=== PATIENT | female | born 1945 | race Caucasian/White ===

== ENCOUNTER 2022-03-17 01:45 | Day surgery (SDC) | payer MEDICARE, OTHER, SELFPAY ==
--- NOTE | 2022-03-09 11:07 | PC.NURSE ---
Report to the Outpatient Waiting Room, entrance under the green pavilion located off [facility], at time _0800 on date __03/17/22 . Planned Procedure Time: ___1000 . Time changes happen often and if your time is changed the preop area will call you the afternoon before. - You and your visitor will be asked to self-screen and do not enter if you have any COVID symptoms. - Only one visitor is requested with a max of two and NO children visitors are allowed at this time. - The patient visitor may be requested to leave or wait in car when not with patient due to distancing restrictions. - A mask is optional within the hospital. Patients may have clear liquids (water, carbonated beverages, clear teas, apple juice) until 3 hours prior to surgery with a maximum of 20 ounces. - No food from midnight until time of surgery - Infants may have breast milk until 4 hours before surgery, formula 6 hours prior to surgery. - Children will be allowed to drink immediately following surgery. If applicable, please bring a bottle or sippy cup to assist with drinking. Juice, water, soda, and popsicles are readily available. For infants on formula, please bring formula the day of surgery. Pacifiers are allowed. Take the following medications with a SIP of water the morning of surgery: __METOPROLOL Medications to discontinue per physician ___ALL VITAMINS AND SUPPLEMENTS 3 DAYS PRE OP LAST DOSE03/13/22___ASPIRIN PER DR PARDO Please no make-up, nail czech, hairspray, perfume, deodorant, or body powder the day of surgery. No jewelry (including any body piercings) or valuables the day of surgery, leave them at home. Please take a shower or bath the night before, or the morning of, surgery with an antibacterial soap. Wear comfortable, loose fitting clothing. Children are encouraged to wear pajamas. - Jewelry must be removed prior to entering the operating room. Rings and piercings that are not removed may be cut off. - The hospital will not accept responsibility for valuables. - Please leave all valuables, including medications, at home the day of surgery. If you are going home after surgery, a licensed driver/guide must drive you home. - NO public transportation without another adult if you receive anesthesia. - We recommend that an adult stay with you for 24 hours following discharge. - We also recommend that you do not drive, make important decision, drink alcoholic beverages, or take any drugs that were not prescribed by your health care provider for at least 24 hours after your discharge time. For Pediatric surgeries, we recommend two adults accompany the child home. Follow any additional instructions given to you from your surgeon. If you or anyone in your household have experienced Covid symptoms in the past week, please notify your surgeon or the nurse liaison at the phone number below for possible testing. Telephone instructions given to __PATIENT and asked if any additional questions and then verbalized understanding. Patient advised to call surgeon office or pre surgery nurse liaison [phone] if any additional questions.
[2022-03-09 11:25] VITALS: BMI 33.3
--- NOTE | ~2022-03-17 | CT_ITS ---
EXAMINATION: CT abdomen pelvis wo con DATE: 03/17/2022 08:47 INDICATION: Right ureteral stone TECHNIQUE: Computed tomography (CT) of the abdomen and pelvis was performed without intravenous contr ast. The dose-length product (DLP) was 233.55 mGy-cm. Automated exposure control and iterative recons truction technique were employed. COMPARISON: None FINDINGS: The lung bases are clear. The heart size is normal. There is a small sliding hiatal hernia. Punctate calcifications in an otherwise normal spleen likely represent healed granulomatous disease. The gallbladder is surgically absent. There is nodularity of the liver surface. The pancreas and adr enal glands are normal. There is a 3 mm nonobstructing stone of the right kidney upper pole. No defin ite stones are identified in the ureters or bladder. There is no hydronephrosis or hydroureter. No pa thologically enlarged abdominal or pelvic lymph nodes are identified. There is no free intraperitonea l gas or evidence of bowel obstruction. There is calcified atherosclerosis of the aorta and many of t he other arteries. There is moderate lumbar spondylosis. IMPRESSION: 1. Nonobstructing right nephrolithiasis. No definite stones in the ureters or bladder. No hydronephro sis or hydroureter Reviewed, dictated and finalized at location B. [employer] IMPRESSION: 1. Nonobstructing right nephrolithiasis. No definite stones in the ureters or b ladder. No hydronephrosis or hydroureter
--- NOTE | ~2022-03-17 | XR_ITS ---
Supine and upright views of the abdomen Clinical history: Lithotripsy Findings: Bowel gas pattern is nonspecific. No evidence for obstruction or free air. Questionable tin y right upper pole renal stones. Cholecystectomy clips present. Osseous structures are intact. Impression: Questionable tiny right upper pole renal stones. Reviewed, dictated and finalized at [facility]. [employer]ER Impression: Questionable tiny right upper pole renal stones.
--- NOTE | 2022-03-17 06:42 | WPDHPUPDATE1 ---
History and Physical Update Update Date/Time: 03/17/22 06:42 History and Physical has been reviewed, including an updated exam of the patient. There are NO changes in the patient's condition. Risks, benefits, and alternatives have been discussed and questions answered. Patient agrees to proceed with procedure.
--- NOTE | 2022-03-17 08:03 | WPDANESEPPF ---
Anes - Initial Pre Proc Eval Procedure: Operation Date: 03/17/22 10:00 Proposed Procedures p Right Extracorporeal Shock Wave Lithotripsy, - Nick Curiel MD s Possible Right Ureteral Stent Placement - Nick Curiel MD Date/Time: 03/17/22 08:03 Surgeon: Nick Curiel MD Pre Op Diagnosis: right ureteral stone Patient Data Age: 76 Gender: F Height: 1.55 m Weight: 79.85 kg Allergies Allergy/AdvReac Type Severity Reaction Status Date / Time latex Allergy Unknown Rash Verified 03/09/22 10:52 Home Medications Medication Instructions Recorded Confirmed Type acetaminophen 325 mg tablet 325 mg PO Q6H PRN Pain 08/23/20 03/09/22 History (Tylenol) aspirin 81 mg tablet,delayed 81 mg PO DAILY 08/23/20 03/09/22 History release (Adult Low Dose Aspirin) latanoprost 0.005 % eye drops 1 drp EACH EYE DAILY 08/23/20 03/09/22 History metoprolol tartrate 50 mg tablet 50 mg PO Q12H 08/23/20 03/09/22 History blood-glucose meter (Blood Glucose #1 ea 02/17/21 12/21/21 Rx Monitoring kit) lancets (Lancets, Super Thin) #300 ea 02/17/21 12/21/21 Rx cholecalciferol (vitamin D3) 10 5,000 unit PO .COMPLEX 04/18/21 03/09/22 History mcg (400 unit) capsule blood sugar diagnostic (Contour #300 ea 04/29/21 12/21/21 Rx Next Test Strips) atorvastatin 10 mg tablet 5 mg PO DAILY #90 tabs 09/26/21 03/09/22 Rx blood-glucose sensor (Dexcom G6 09/26/21 12/21/21 History Sensor device) blood-glucose transmitter (Dexcom 09/26/21 12/21/21 History G6 Transmitter device) dulaglutide 1.5 mg/0.5 mL 1.5 mg (0.5 mL) subcut WEEKLY 90 09/26/21 03/09/22 Rx subcutaneous pen injector days #6.5 syringes (Trulicity) insulin lispro protamine-lispro See Rx Instructions subcut .bidac 09/26/21 03/09/22 Rx 100 unit/mL (75-25) subcutaneous 90 days #14 syringes pen (Humalog Mix 75-25 KwikPen) metformin 1,000 mg tablet 1,000 mg PO DAILY #90 tabs 09/26/21 03/09/22 Rx pen needle, diabetic 32 gauge x #200 ea 12/21/21 12/21/21 Rx /32 (BD Kathleen 2nd Gen Pen Needle) famotidine 20 mg tablet (Pepcid) 20 mg PO PRN PRN Heartburn 03/09/22 03/09/22 History Patient hx anesthesia problems: none Family hx anesthesia problems: none Results Review: All pre-operative results and documents have been reviewed as part of the pre-operative evaluation. [facility] Social History Social History Smoking status: Never smoker Alcohol intake: never Substance use: never Substance use type: does not use Living arrangements: alone Additional living arrangements comments: passed in 04/2020 Spiritual care concerns: No Anes - Eval Final PreProcedure Day of Procedure 03/17/22 08:03 Patient weight: obese Heart: regular rate and rhythm Lungs: decreased breath sounds Airway: Mallampati scale class III Neurological: other (alert) Last oral intake: >/= 8 hours ASA classification: III Emergent: no Anesthetic plan: proceed Anesthesia type and monitoring: general LMA and standard monitoring Results Review: All pre-operative results and documents have been reviewed as part of the pre-operative evaluation. Informed Consent: The patient's anesthetic plan and its attendant risks and benefits were discussed with the patient/family/POA. Questions were solicited and answers provided to the satisfaction of the patient/family/POA.
[2022-03-17 08:24] LABS: Glucose Point of Care 144 mg/dl (65-105)
[2022-03-17 08:30] VITALS: BP 176/81; PULSE 88; RESP 14; TEMP 36.1; O2SAT 100
[2022-03-17] MEDS: LACTATED RINGERS 1,000 ML 30 ML IV CONT (08:33)
[2022-03-17 08:36] LABS: INR 1.1; Prothrombin Time 14.1 Seconds (11.1-14.7)
--- NOTE | 2022-03-17 08:59 | SUR.PREOP ---
DR PARDO AWARE WE TRIED TO GET RESULTS FOR URINE CULTURE AND WERE UNABLE TO OBTAIN.
[2022-03-17] MEDS: ceFAZolin 2 GM/D5W 50 ML 2 GM/50 ML BAG IVPB (09:33)
[2022-03-17 10:00] VITALS: BP 145/75; PULSE 78; RESP 12; TEMP 36.2; O2SAT 100
[2022-03-17 10:15] VITALS: BP 145/75; PULSE 74; RESP 12; O2SAT 100
[2022-03-17 10:30] VITALS: BP 156/82; PULSE 75; RESP 14; O2SAT 100
--- NOTE | 2022-03-17 10:37 | W.PM.PROC2 ---
Procedure Note - Detailed Date of Procedure 03/17/22 Pre-op Diagnosis Possible right ureteral stone Post-op Diagnosis Same Procedure Performed Cystoscopy, right retrograde pyelography Surgeon Nick Curiel MD Anesthesia General Findings No identifiable right ureteral calculi Description of Procedure Preoperative imaging on the morning of her planned ESWL failed to definitively identify a right ureteral calculus. It was hard to say on both KUB and CT scan if a calcification in her pelvis was either a phlebolith or a ureteral stone. In light of that, we decided to do cystoscopy with retrograde pyelography. Cystoscopy is undertaken the 16 F flexible cystoscope. The bladder neck and urethra were endoscopically normal. Bladder mucosa was normal without hyperemia. There was a single orthotopic ureteral orifice bilaterally. 0.035 in glidewire was advanced into the right renal pelvis and retrograde pyelography was undertaken with a angiographic catheter. There clearly no points of filling defect or obstruction in the distal right ureter. The calcification we were Saint is clearly lateral to the ureter light of opted forego any additional procedures. Scopes and wires removed and she was taken to recovery room good condition.
[2022-03-17 10:41] VITALS: BP 158/83; PULSE 85; RESP 14
[2022-03-17 10:55] LABS: Glucose Point of Care 135 mg/dl (65-105)
[2022-03-17 11:05] VITALS: BP 161/80; PULSE 70; RESP 16
== END 2022-03-17 11:15 | disposition home or self-care (01) ==
PROVIDERS: PCP Family Medicine; Visit Provider Urology
PROC: (CPT 50590; principal; 2022-03-17 10:00)
DX: R93.41 Abnormal radiologic findings on diagnostic imaging of renal pelvis, ureter, or bladder (principal); R10.31 Right lower quadrant pain; I10 Essential (primary) hypertension; E11.9 Type 2 diabetes mellitus without complications; Z79.82 Long term (current) use of aspirin; Z79.899 Other long term (current) drug therapy; Z79.4 Long term (current) use of insulin; Z79.84 Long term (current) use of oral hypoglycemic drugs; Z95.1 Presence of aortocoronary bypass graft; E66.9 Obesity, unspecified; Z68.32 Body mass index [BMI] 32.0-32.9, adult
CPT/HCPCS: 52005; 36415; 74018; 74176; 82948; 85610; 85730; C1758; C1769; J0690; J2405; J2704; J3010; J7030; J7120; Q9966